=== PATIENT | male | born 1945 | race Caucasian/White ===

== ENCOUNTER 2017-07-10 08:15 | Outpatient (CLI) | payer MEDICARE, BC ==
--- NOTE | 2017-07-10 09:02 | RAD ---
TWO VIEWS LUMBAR SPINE: DATE: 07/10/17. HISTORY: Mid and lower back pain. The patient is unable to walk without pain. 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 The pain is more severe. FINDINGS: There are 5 [id number] lumbar-type vertebral bodies. There is a mild wedge-shaped compression f racture of the T12 vertebral body of which the exact age is indeterminate. There is approximately 30 % loss of height anteriorly. The vertebral body heights and lumbar spine are within normal limits. Multilevel osteophytes are seen and there is narrowing of the intervertebral disk space at the lumbos acral junction. No other findings. IMPRESSION: 1. Indeterminate age wedge-shaped compression fracture of the T12 vertebral body. 2. Mild degenerative change in the lumbar spine greatest at the lumbosacral junction. POS: [facility]
--- NOTE | 2017-07-10 09:05 | RAD ---
TWO VIEWS LEFT HIP: DATE: 07/10/17. COMPARISON: None. HISTORY: Pain, trouble walking. FINDINGS: There is moderate superior joint space narrowing involving the left hip. There is subchondral sclero sis and lateral osteophyte formation involving the acetabulum. There is no displaced fracture or dis location. IMPRESSION: Moderate degenerative disk disease involving the left hip. No acute fracture or dislocation. POS: [facility]
--- NOTE | 2017-07-10 09:07 | RAD ---
THREE VIEWS THORACIC SPINE: DATE: 07/10/17. HISTORY: Mid and lower back pain. The patient is unable to walk due to the back pain. FINDINGS: There is mild left convex curvature of the upper thoracic spine. There is a wedge-shaped compression fracture of the T12 vertebral body of indeterminate age. The degree of height loss anteriorly is ap proximately 30%. The remaining vertebral bodies heights of the thoracic spine are within normal limi ts. A few scattered minimal osteophytes are seen within the thoracic spine. Mild degenerative hicks e is seen in the cervical spine. IMPRESSION: Indeterminate age wedge-shaped compression fracture of the T12 vertebral body. POS: [facility]
== END 2017-07-10 08:16 | disposition home or self-care (01) ==
LOC: SCSRAD 08:15
PROVIDERS: ATTEND Family Medicine
DX: R26.81 Unsteadiness on feet (principal); S22.080D Wedge compression fracture of T11-T12 vertebra, subsequent encounter for fracture with routine healing; M16.12 Unilateral primary osteoarthritis, left hip; M47.897 Other spondylosis, lumbosacral region
CPT/HCPCS: 72072; 72100

== ENCOUNTER 2017-07-28 07:58 | Outpatient (CLI) | payer MEDICARE, BC | END 2017-07-28 07:59 | disposition home or self-care (01) | LOC: BICMRI 07:58 | PROVIDERS: ATTEND Orthopaedic Surgery | DX: M47.26 Other spondylosis with radiculopathy, lumbar region (principal); M99.83 Other biomechanical lesions of lumbar region; G95.29 Other cord compression | CPT/HCPCS: 72148 ==

== ENCOUNTER 2017-11-01 10:27 | Outpatient (CLI) | payer MEDICARE ==
--- NOTE | 2017-11-01 13:47 | MRI ---
MRI CERVICAL SPINE NONCONTRAST: 11/01/2017 HISTORY: A 72-year-old male with (M54.12) cervical radiculopathy. COMPARISON: None. FINDINGS: The cervical spinal cord is normal in size and signal. Disk space narrowing is moderate to severe at C4-C5 and at C6-C7. Moderate to severe degenerative facet disease bilaterally at C2-C3, C3-C4, C4-C 5, and C5-C6. Multiple small nerve root sleeve cysts in the bilateral neural foramina at C5-C6, C6-C 7, C7-T1, and T1-T2. C1-C2: No high grade central stenosis, as seen on sagittal images. C2-C3: No high grade central stenosis. No high grade bilateral neural foraminal stenosis. C3-C4: The degenerative facet disease causes a grade 1 anterolisthesis of C3 on C4. This spondyloli sthesis, together with mild broad-based disk-osteophytic bar complex, plus a small, focal, central co mponent of disk- osteophyte complex, results in moderate central spinal canal stenosis. No significa nt right-sided neural foraminal stenosis. There is moderate to severe left neural foraminal stenosis . C4-C5: Central and bilateral paracentral broad-based, moderately large disk-osteophytic bar complex indents the ventral surface of the spinal cord, displacing it posteriorly against the posterior wall of the spinal canal, resulting in severe central spinal canal stenosis, with obliteration of most of the CSF signal. Large bilateral uncinate process osteophytes, together with the degenerative facet h ypertrophy, result in extremely severe right neural foraminal stenosis and severe left neural foramin al stenosis. C5-C6: Broad-based disk-osteophytic bar complex indents the ventral surface of the spinal cord, caus ing moderate central spinal canal stenosis. Bilateral uncinate process osteophytes cause severe bila teral neural foraminal stenosis, left worse than right. C6-C7: Broad-based disk-osteophytic bard complex minimally indents the ventral surface of the spinal cord. There is mild to moderate central spinal canal stenosis. Bilateral uncinate process osteophy priyanka cause mild right neural foraminal stenosis and mild to moderate left neural foraminal stenosis. C7-T1: No significant right-sided neural foraminal stenosis. Small to moderate sized left uncinate process osteophytes cause mild to moderate left neural foraminal stenosis. No central stenosis. At the C7-T1 level, there is a smoothly, well circumscribed, approximately 2.1 x 1.8 x 2 cm mass, whi ch is isointense to muscle on T1 WI and has mixed signal intensity (hypointense and hyperintense) on T2 WI, abutting the right side of the trachea and esophagus. It appears to be abutting the posterior surface of what appears to be a diffusely atrophic thyroid gland. IMPRESSION: 1. Cervical spondylosis with multilevel degenerative disk disease and facet osteoarthrosis. 2. Severe central spinal canal stenosis with chronic cord impingement at C4-C5. 3. Multilevel high-grade neural foraminal stenosis. This is worst on the right at C4-C5, where it i s extremely severe. 4. Right paratracheal/paraesophageal solid mass at the C7-T1 level. This could be a thyroid nodule or large parathyroid adenoma. This is posterior to the atrophic right lobe of the thyroid gland. Re commend correlation with serum PTH and calcium levels. Because of its deep, posterior location, this may be difficult to access with ultrasound guided fine needle aspiration. It may or may not be amen able to CT-guided fine needle aspiration. POS: [facility]
== END 2017-11-01 10:28 | disposition home or self-care (01) ==
LOC: TBSIIMAG 10:27
PROVIDERS: ATTEND Nurse Practitioner Family
DX: M50.10 Cervical disc disorder with radiculopathy, unspecified cervical region (principal); M47.22 Other spondylosis with radiculopathy, cervical region; M48.02 Spinal stenosis, cervical region; M99.81 Other biomechanical lesions of cervical region; M89.9 Disorder of bone, unspecified
CPT/HCPCS: 72141

== ENCOUNTER 2017-11-13 15:22 | Outpatient (CLI) | payer MEDICARE | END 2017-11-13 15:23 | disposition home or self-care (01) | LOC: BICULT 15:22 | PROVIDERS: ATTEND Family Medicine | DX: R93.8 Abnormal findings on diagnostic imaging of other specified body structures (principal) | CPT/HCPCS: 76536 ==

== ENCOUNTER 2017-11-29 07:38 | Outpatient (CLI) | payer MEDICARE ==
--- NOTE | 2017-11-29 10:24 | RAD ---
LUMBAR SPINE FOUR VIEWS INCLUDING STANDING FLEXION AND EXTENSION VIEWS: HISTORY: A 72-year-old male with a history of lumbar radiculopathy with low back pain and bilateral leg pain f or six months. Prior history of fall. COMPARISON: 07/10/2017 FINDINGS: Prominent multilevel disk osteophytosis with narrowing, particularly at L5-S1. No evidence for acute compression fracture. No abnormal translation between flexion and extension. IMPRESSION: Lumbar spondylosis. No abnormal translation between flexion and extension. Stable from prior study. POS: [facility]
--- NOTE | 2017-11-29 10:28 | RAD ---
FOUR VIEWS CERVICAL SPINE: HISTORY: Myelopathy. Spondylosis. COMPARISON: None. FINDINGS: AP, open-mouth, lateral neutral, lateral flexion, lateral extension views of the cervical spine are s ubmitted for interpretation. There is no prevertebral soft tissue swelling. Predental space is norm al. In the neutral position, there is 2.7 mm anterolisthesis of C3 upon C4. Upon flexion, there is 2.5 mm of anterolisthesis of C3 upon C4. Upon extension, there is 2.5 mm anterolisthesis of C3 upon C4. In the neutral position, there is 2.7 mm anterolisthesis of C5 upon C6. Upon flexion, there is 4 mm anterolisthesis of C5 upon C6. Upon extension, there is 3.3 mm of anterolisthesis of C5 upon C6. There is reversal of normal cervical lordosis of C6-C6. Moderate severe degenerative change at C6-C7 . Moderate degenerative change at C4-C5 and C5-C6 is also noted. IMPRESSION: Spondylolisthesis as above. POS: [facility]
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
== END 2017-11-29 07:39 | disposition home or self-care (01) ==
LOC: TBSIIMAG 07:38
PROVIDERS: ATTEND Surgery
DX: M43.12 Spondylolisthesis, cervical region (principal); M47.12 Other spondylosis with myelopathy, cervical region; M47.26 Other spondylosis with radiculopathy, lumbar region; Z87.81 Personal history of (healed) traumatic fracture
CPT/HCPCS: 72050; 72110; 72146

== ENCOUNTER 2017-11-30 07:45 | Day surgery (SDC) | payer MEDICARE ==
[2017-11-30 08:19] LABS: #Eosinphils 0.1 thou/uL (0.0-0.7); #Lymphocytes 1.2 thou/uL (1.20-3.40); #Monocytes 0.6 thou/uL (0.11-0.59); #Neutrophils 5.3 thou/uL (1.40-6.50); %Basophils 0.3 % (0.0-1.0); %Eosinophils 1.7 % (0.0-10.0); %Lymphocytes 16.7 % (21.0-51.0); %Monocytes 7.9 % (0.0-10.0); %Neutrophils 73.5 % (42.0-75.0); Hemoglobin 9.2 g/dL (14.0-18.0); Mean Corpuscular HGB CONC 32.2 g/dL (32.0-36.0); Mean Corpuscular Hemoglobin 29.3 pg (27.0-31.0); Mean Corpuscular Volume 90.8 fl (80.0-94.0); Mean Platelet Volume 7.6 fL (7.4-10.4); Platelet Count 404 thou/uL (130-400); RBC Distribution Width 14.3 % (11.5-14.5); Red Blood Cell (RBC) Count 3.15 mill/uL (4.70-6.10); White Blood Cell (WBC) Count 7.1 thou/uL (4.8-10.8)
[2017-11-30 08:26] LABS: INR-International Normal Ratio 1.1; Prothrombin Time 13.9 SEC (12.0-14.7)
[2017-11-30 12:02] VITALS: BP 119/58; TEMP 97.9
--- NOTE | 2017-11-30 12:07 | ULT ---
PROCEDURE: 1. Ultrasound-guided 20-gauge biopsy of a 2 cm hypoechoic mass posterior to the right lobe of the th yroid. 2. Ultrasound-guided 25-gauge fine needle aspiration of the 2 cm mass posterior to the right lobe of the thyroid. INDICATION: A 2 cm mass posterior to the right lobe of the thyroid was incidentally noted on recent MRI of the ce rvical spine. The patient was referred for biopsy of this mass. The mass is visible on ultrasound i s seen posterior to the thyroid. Ultrasound guidance was selected. PROCEDURE NOTE: 1. Pathologist is present at bedside. Initial biopsy was performed using a Temno 20-gauge biopsy in strument. Biopsy of the mid portion of this mass with this Temno instrument was performed x 3. Tiny tissue fragments were obtained with each specimen and were given to the pathologist for evaluation. 2. Following biopsy, ultrasound-guided FNA was performed using a 25-gauge needle. Each FNA specimen was obtained through the mid portion of the mass as confirmed on ultrasound. Specimens were given t o pathology at the bedside. PROCEDURE NOTE: Ultrasound was performed to assess the previously noted mass posterior thyroid seen on MRI. The mass is well seen with ultrasound and is posterior to the right lobe of the thyroid and slightly medial to the carotid artery. The overlying skin was prepped and draped in a sterile manner. Local anesthesia was administered wit h Lidocaine. The Temno 20-gauge biopsy instrument was used and was introduced into the mid portion o f this mass under ultrasound guidance. Position within the middle of the mass was confirmed on ultra sound. A core biopsy was obtained and tiny tissue fragments were present and given to pathology. Th is was repeated x 3. FNA through the mid portion of the mass with a 25-gauge needle was then performed under ultrasound gu idance. The needle was confirmed within the mid portion of the mass with each FNA specimen. Postprocedure ultrasound showed no evidence of hematoma. The patient tolerated the procedure well an d there were no problems or complications. The patient will followup with Dr. Black for biopsy repo rt. POS: [facility]
[2017-11-30 12:12] VITALS: BMI 24.0
== END 2017-11-30 11:25 | disposition home or self-care (01) ==
LOC: CT 07:45
PROVIDERS: ATTEND Specialist
PROC: 0GBH3ZX Excision of Right Thyroid Gland Lobe, Percutaneous Approach, Diagnostic (ICD-10-PCS; principal; 2017-11-30)
PROC: 0G9H3ZX Drainage of Right Thyroid Gland Lobe, Percutaneous Approach, Diagnostic (ICD-10-PCS; 2017-11-30)
DX: E07.89 Other specified disorders of thyroid (principal); E83.52 Hypercalcemia; E11.9 Type 2 diabetes mellitus without complications; G47.33 Obstructive sleep apnea (adult) (pediatric); K40.20 Bilateral inguinal hernia, without obstruction or gangrene, not specified as recurrent; D64.9 Anemia, unspecified; Z79.84 Long term (current) use of oral hypoglycemic drugs; Z79.899 Other long term (current) drug therapy
CPT/HCPCS: 10022; 36415; 38505; 76942; 85025; 85610; 85730; 88173; 88305; 88333; 88334; 88341; 88342

== ENCOUNTER 2018-01-31 12:30 | Outpatient (CLI) | payer MEDICARE ==
--- NOTE | 2018-01-31 13:09 | RAD ---
CHEST TWO VIEWS: History: Dyspnea. FINDINGS: Cardiac silhouette and pulmonary vasculature are unremarkable. Shallow inspiration accentuates pulmon fantasma markings. Mediastinum is midline. No confluent airspace consolidation, pneumothorax or pleural fl uid. Bowel with gas is interposed between the right hemidiaphragm and dome of the liver. IMPRESSION: No active cardiopulmonary abnormalities are demonstrated. POS: [facility]
== END 2018-01-31 12:31 | disposition home or self-care (01) ==
LOC: RAD 12:30
PROVIDERS: ATTEND Internal Medicine Pulmonary Disease
DX: R06.00 Dyspnea, unspecified (principal)
CPT/HCPCS: 71046

== ENCOUNTER 2018-03-22 08:01 | Outpatient (CLI) | payer MEDICARE | END 2018-03-22 08:02 | disposition home or self-care (01) | LOC: BICMAMMO 08:01 | PROVIDERS: ATTEND Internal Medicine Rheumatology | DX: M81.8 Other osteoporosis without current pathological fracture (principal) | CPT/HCPCS: 77080 ==

== ENCOUNTER 2018-10-02 09:42 | Outpatient (CLI) | payer MEDICARE ==
--- NOTE | 2018-10-02 10:00 | RAD ---
F3 views left ankle: 10/02/2018 HISTORY: Pain and lateral tightness FINDINGS: The talar dome and ankle mortise appear intact. There is mild enthesophyte formation at the insertion of the Achilles tendon. There is prominent enthesophyte formation at the origin of the weston ntar aponeurosis. No acute fracture or dislocation. IMPRESSION: No acute osseous abnormality. Calcaneal enthesophyte formation as detailed above.
== END 2018-10-02 09:43 | disposition home or self-care (01) ==
LOC: BICRAD 09:42
PROVIDERS: ATTEND Internal Medicine Rheumatology
DX: M25.572 Pain in left ankle and joints of left foot (principal); M77.32 Calcaneal spur, left foot

== ENCOUNTER 2019-03-21 14:24 | Outpatient (CLI) | payer MEDICARE ==
--- NOTE | 2019-03-21 15:15 | ULT ---
US Renal Bilateral STANDARD History: Cyst of kidney N28.1 Comparison: CT abdomen and pelvis February 25, 2019 Findings: Real-time grayscale and color evaluation of the kidneys and urinary bladder was performed. Right kidney measures 11.1 x 5.3 x 5.9 cm and left kidney measures 11.8 x 5 x 6.2 cm. Corresponding t o the recent CT finding is a simple cyst superior pole left kidney. No abnormal mass. Prostate is markedly enlarged. Impression: Interpolar/superior pole anterior cortex left renal simple cyst.
== END 2019-03-21 14:25 | disposition home or self-care (01) ==
LOC: BICULT 14:24
PROVIDERS: ATTEND Physician Assistant Medical
DX: N28.1 Cyst of kidney, acquired (principal)
CPT/HCPCS: 76770